=== PATIENT | male | born 1985 | race Caucasian/White ===

== ENCOUNTER 2022-09-07 11:26 | Outpatient (CLI) | payer OTHER, SELFPAY ==
[2022-09-07 17:45] LABS: Chloride* 105 mmol/L (96-114)
[2022-09-07 17:46] LABS: Potassium* 4.4 mmol/L (3.6-5.1); Sodium* 143 mmol/L (135-149)
[2022-09-07 17:48] LABS: Carbon Dioxide* 31 mmol/L (20-32); Cholesterol* 184 mg/dL (90-199); Creatinine* 0.8 mg/dL (0.5-1.5); Estimated Glomerular Filt Rate 116 ml/min
[2022-09-07 17:49] LABS: Blood Urea Nitrogen* 7 mg/dL (5-24); Calcium* 9.8 mg/dL (8.4-10.6); Glucose* 87 mg/dL (60-115); HDL Cholesterol* 50 mg/dL (>=40); LDL Cholesterol Calculated 92 mg/dL (<100); Triglycerides* 212 mg/dL (40-149)
== END 2022-09-07 11:27 | disposition home or self-care (01) ==
PROVIDERS: PCP Family Medicine; Visit Provider Family Medicine
DX: I10 Essential (primary) hypertension (principal); E78.5 Hyperlipidemia, unspecified; Z13.89 Encounter for screening for other disorder
CPT/HCPCS: 80048; 80061; 87086

== ENCOUNTER 2023-09-05 09:10 | Outpatient (CLI) | payer BC, SELFPAY ==
[2023-09-05 15:25] LABS: Chlamydia DNA Amplified* NOT DETECTED (No Detected); GC DNA Amplified* NOT DETECTED (No Detected)
== END 2023-09-05 09:11 | disposition home or self-care (01) ==
PROVIDERS: PCP Nurse Practitioner Family; Visit Provider Nurse Practitioner Family
DX: I10 Essential (primary) hypertension (principal); E78.5 Hyperlipidemia, unspecified; Z11.3 Encounter for screening for infections with a predominantly sexual mode of transmission; E53.8 Deficiency of other specified B group vitamins
CPT/HCPCS: 80053; 80061; 82607; 84443; 86592; 86703; 86803; 87491; 87591

== ENCOUNTER 2023-09-16 12:32 | Outpatient (CLI) | payer BC, SELFPAY ==
--- NOTE | 2023-09-16 13:04 | W.ANESCHARGE ---
Anesthesia Charges Start Date/Time Anesthesia Start Date: 09/16/23 Anesthesia Start Time: 13:10 Stop Date/Time Anesthesia Stop Date: 09/16/23 Anesthesia Stop Time: 13:55
--- NOTE | 2023-09-16 13:54 | W.ANESCHARGE ---
Anesthesia Charges Start Date/Time Anesthesia Start Date: 09/16/23 Anesthesia Start Time: 13:10 Stop Date/Time Anesthesia Stop Date: 09/16/23 Anesthesia Stop Time: 13:55
== END 2023-09-16 12:33 | disposition home or self-care (01) ==
LOC: OP CLINIC 12:33
PROVIDERS: PCP Nurse Practitioner Family; Visit Provider Internal Medicine
DX: Z12.11 Encounter for screening for malignant neoplasm of colon (principal); K63.5 Polyp of colon; Z80.0 Family history of malignant neoplasm of digestive organs; K22.70 Barrett's esophagus without dysplasia
CPT/HCPCS: 00813; 43239; 45380; 88305; 88312; J2704

== ENCOUNTER 2023-09-30 13:48 | Outpatient (CLI) | payer BC, SELFPAY ==
--- NOTE | 2023-09-30 14:00 | CRLHL7_ITS ---
For Patients: As a result of the Century Cures Act, medical imaging exams and procedure reports are released immediately into your electronic medical record. You may view this report before your referring provider. If you have questions, please contact your health care provider. INDICATION: Elevated liver enzymes COMPARISON: CT 05/11/2020 TECHNIQUE: Real time tracey scale imaging and color Doppler analysis was performed of the right upper quadrant. FINDINGS: The patient`s liver measures 17.4 cm and has diffusely increased echogenicity. There is a normal appearance of the hepatic IVC and proximal abdominal aorta. There is no evidence of ascites. The gallbladder is of normal size and there is an echogenic focus associated with the gallbladder wall, unchanged. The gallbladder wall measures 2 mm in thickness. The common bile duct is of normal size and measures 4 mm in diameter at the level of the la hepatis. The pancreas is not well-visualized. There is no evidence of a stone or hydronephrosis within the right kidney. The right kidney measures 14.6 cm in length. IMPRESSION: Mild hepatomegaly and moderate diffuse hepatic steatosis. No intrahepatic mass or ascites. Small adherent stone associated with gallbladder wall, unchanged. Dictated by Jeremy Hernandez MD @ 09/30/2023 3:13:17 PM (Electronically Signed)
== END 2023-09-30 13:49 | disposition home or self-care (01) ==
LOC: US 13:49
PROVIDERS: PCP Nurse Practitioner Family; Visit Provider Nurse Practitioner Family
DX: R79.89 Other specified abnormal findings of blood chemistry (principal); K76.0 Fatty (change of) liver, not elsewhere classified; K80.20 Calculus of gallbladder without cholecystitis without obstruction
CPT/HCPCS: 76705

== ENCOUNTER 2024-09-24 10:16 | Outpatient (CLI) | payer BC, SELFPAY | END 2024-09-24 10:17 | disposition home or self-care (01) | PROVIDERS: PCP Nurse Practitioner Family; Visit Provider Nurse Practitioner Family | DX: E53.8 Deficiency of other specified B group vitamins (principal); I10 Essential (primary) hypertension; E78.5 Hyperlipidemia, unspecified; R79.89 Other specified abnormal findings of blood chemistry | CPT/HCPCS: 80053; 80061; 82607 ==